=== PATIENT | male | born 2000 | race Hispanic/Latino ===

== ENCOUNTER 2024-05-19 10:45 | Emergency (ER) | payer BC, OTHER ==
[2024-05-19 11:06] VITALS: BP 178/98; PULSE 78; RESP 18; TEMP 97.2; O2SAT 98
--- NOTE | 2024-05-19 12:20 | ERPHSYRPT ---
- History of Present Illness Time Seen by Provider: 05/19/24 11:15 Source: patient, family Exam Limitations: no limitations Patient Subjective Stated Complaint: pt brougt in by dad to be placed on mental health meds is he is going to live with hes dad, he day has not seen him 10 years, pt denies being suidical or homicidal. he denies seeing or hearing things Triage Nursing Assessment: pt alert,anxious, questions nursing staff about /s and staying in room. he is uncooperatove at to,es. amd states he is here is because of hes dad, walked in, resp easy, skin w/d/p. moves all ext well, no edema noted. dad states he has been on latuda and celexa in the past Physician History: 23-year-old with history of anxiety/depression/bipolar, questionable history of schizophrenia who moved to live in with his father after 10 years and has not been taking his medication which is concerning for father. Father reports he needs to be on Latuda and citalopram. Patient report he has not been taking for almost a year. He denies any suicidal or homicidal ideations. No ideas of hopelessness/helplessness. No hallucinations. Smokes marijuana occasionally but no alcohol. Patient agreeable to restart his medications. They went to see Nati Jaquez NP but no appointment is available today. Allergies/Adverse Reactions: No Known Drug Allergies Allergy (Unverified 05/19/24 11:07) Hx Tetanus, Diphtheria Vaccination/Date Given: No Hx Influenza Vaccination/Date Given: No Hx Pneumococcal Vaccination/Date Given: No Immunizations Up to Date: Yes Travel Risk - International Travel Have you traveled outside of the country in past 3 weeks: No - Emerging Infectious Disease Are you exhibiting symptoms associated with any current EIDs: No - Past Medical History Pertinent Past Medical History: No (unsure) - Past Surgical History Past Surgical History: No (unsure) - Social History Smoking Status: Former smoker Exposure to second hand smoke: No Drug Use: marijuana - Social Determinants of Health Will the patient participate in the screening: Unable to obtain - Review of Systems Constitutional: No Symptoms Eyes: No Symptoms Ears, Nose, & Throat: No Symptoms, Throat Swelling Cardiac: No Symptoms Abdominal/Gastrointestinal: No Symptoms Genitourinary Symptoms: No Symptoms Musculoskeletal: No Symptoms Skin: No Symptoms Neurological: No Symptoms Psychological: No Suicidal Ideations, No Homicidal Ideations, No Hallucinations Endocrine: No Symptoms Hematologic/Lymphatic: No Symptoms Immunological/Allergic: No Symptoms - Nursing Vital Signs Nursing Vital Signs: Initial Vital Signs Temperature 97.2 F 05/19/24 11:06 Pulse Rate 78 05/19/24 11:06 Respiratory Rate 18 05/19/24 11:06 Blood Pressure 178/98 05/19/24 11:06 O2 Sat by Pulse Oximetry 98 05/19/24 11:06 Pain Scale Pain Intensity 0 - Physical Exam General Appearance: no apparent distress, alert Eyes, Ears, Nose, Throat Exam: normal ENT inspection Neck Exam: normal inspection, full range of motion Respiratory Exam: normal breath sounds, lungs clear Cardiovascular Exam: regular rate/rhythm, normal heart sounds Gastrointestinal/Abdominal Exam: soft, normal bowel sounds, No tenderness Extremities Exam: normal inspection, normal range of motion Current Suicidality: denies suicide plan Neurological Exam: alert, 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 Patient was taking a pretty high dose of Latuda and citalopram. Since he is off for quite some time, I have started him on Latuda 20 and citalopram 20 and will give 1 week worth, made appointment with Nati Jaquez patient's primary. Patient does not have any suicidal or homicidal ideations which is attested by dad. Dad does not have any other concern either. Do not think he needs any workup and is stable for discharge with outpatient follow-up. Discussed signs symptoms of worsening needing return to ER which patient/father seem understanding. Counseled pt/family regarding: diagnosis, need for follow-up Medical Desision Making - Independent Historian Additional History obtained from: Father - Diagnostic Testing Diagnostic test were ordered, analyzed, and reviewed by me: No - Risk of complications The pt has a mod risk of morbidity or mortality based on: Need for prescription drug management - Departure Departure Disposition: Home Clinical Impression: Bipolar disorder Condition: Stable Critical Care Time: No Referrals: DOCTOR,NO FAMILY [Primary Care Provider] - Follow up/PCP as directed SHARRON JAQUEZ NP [NON-STAFF PHY W/O PRIVILEGES] - Follow up with PCP 5 days Instructions: Bipolar disorder - Discharge instructions Additional Instructions: Follow-up with primary care for reevaluation early next week as scheduled. Return to ER if having any worsening of symptoms with suicidal or homicidal ideations/hallucination etc. APT WITH [facility] WRIGHT ON MAY 24 AT 0815 Prescriptions: Citalopram Hydrobromide 20 mg* [ceLEXa 20 MG] 20 mg PO DAILY 7 Days #7 tablet Lurasidone HCl [Latuda] 20 mg PO DAILY 7 Days #7 tablet
== END 2024-05-19 12:43 | disposition home or self-care (01) ==
LOC: ED 10:45
DX: F31.9 Bipolar disorder, unspecified (principal)
CPT/HCPCS: 99281